=== PATIENT | female | born 1990 | race African-American/Black ===

== ENCOUNTER 2024-01-17 22:37 | Emergency (ER) | payer SELFPAY ==
[2024-01-18] MEDS ORDERED: Lidocaine/Transparent Dressing 1 EACH KIT ONE (00:13)
== END 2024-01-18 00:50 | disposition home or self-care (01) ==
LOC: ERS 22:37
DX: L02.211 Cutaneous abscess of abdominal wall (principal); L73.2 Hidradenitis suppurativa; F17.210 Nicotine dependence, cigarettes, uncomplicated
CPT/HCPCS: 10060